=== PATIENT | female | born 1940 | race Caucasian/White ===

== ENCOUNTER → 2017-09-29 | Outpatient (CLI) | payer OTHER ==
[~2017-09-29] MED LIST: ANASTROZOLE1 MG PO; ASPIR 8181 M1 PO; BUSPIRONE HCL15 MG PO; IRBESARTAN300 MG PO; PRAVASTATIN SOD40 MG PO; VENLAFAXINE HCL75 MG PO; VITAMIN D2000 UNIT PO
== END | disposition home or self-care (01) ==
LOC: EKG 13:54
DX: I11.9 Hypertensive heart disease without heart failure (principal)
CPT/HCPCS: 93306